=== PATIENT | male | born 2000 | race Two or more races ===

== ENCOUNTER 2024-12-12 20:04 | Emergency (ER) | payer OTHER ==
[~2024-12-12] VITALS: Ht 177.8 cm; Wt 81.6 kg
[2024-12-12] MEDS ORDERED: CEFTRIAXONE SODIUM 1,000 MG VIAL IM ONE (21:30)
[2024-12-12] MEDS ORDERED: KETOROLAC TROMETHAMINE 30 MG VIAL IM ONE (21:30)
[2024-12-12] MEDS ORDERED: CEFTRIAXONE SODIUM 1,000 MG VIAL ONE (21:32)
[2024-12-12] MEDS ORDERED: KETOROLAC TROMETHAMINE 30 MG VIAL ONE (21:32)
[2024-12-12] MEDS ORDERED: VALACYCLOVIR1000 MG PO (21:33)
[2024-12-12] MEDS ORDERED: AQUAPHOR WITH N50 GM TOP (21:33)
== END 2024-12-12 22:19 | disposition home or self-care (01) ==
LOC: ER 20:04
DX: K62.9 Disease of anus and rectum, unspecified (principal); K60.2 Anal fissure, unspecified